=== PATIENT | female | born 1990 | race Caucasian/White ===

== ENCOUNTER 2019-03-13 21:12 | Emergency (ER) | payer BC ==
[~2019-03-13] VITALS: Ht 162.6 cm; Wt 92.0 kg
--- NOTE | 2019-03-13 21:42 | PHYS DOC ---
Adult General Chief Complaint Chief Complaint: ". I hurt bad. here.. on Lt. .. This pain started at dinner.. Maybe I am having a kidney stone... My dad has them. .. I ve never had one..." HPI HPI Patient is a 28 year old female who presents with above hx and complaints extremely severe left flank abdomen pain which radiates to her left lower groin. Patient denies any trauma. Patient denies any travel specific ill contacts. No history of fever or chills. Patient states symptoms started at dinner and became more severe. Patient describes pain as stabbing. At peak times is rated 10 out of 10. Patient has some feeling as if she has to urinate. Patient denies any dysuria however. Patient denies any bad food. Patient denies any history of colitis with her or family members. There is family history of renal stones with father. Patient normally follows with Dr. Santos Review of Systems Review of Systems Constitutional: Denies fever or chills [] Eyes: Denies change in visual acuity, redness, or eye pain [] HENT: Denies nasal congestion or sore throat [] Respiratory: Denies cough or shortness of breath [] Cardiovascular: No additional information not addressed in HPI [] GI: Complaints of abdominal pain, nausea, and left flank pain. Patient denies Vomiting, bloody stools or diarrhea [] : Denies dysuria or hematuria [] Musculoskeletal: Complains of left flank back pain Integument: Denies rash or skin lesions [] Neurologic: Denies headache, focal weakness or sensory changes [] Endocrine: Denies polyuria or polydipsia [] All other systems were reviewed and found to be within normal limits, except as documented in this note. Family History Family History Father has kidney stones Current Medications Current Medications See nursing for home meds Allergies Allergies No known drug allergies Physical Exam Physical Exam Constitutional: Well developed, well nourished,in acute distress, non-toxic appearance. [] HENT: Normocephalic, atraumatic, bilateral external ears normal, oropharynx moist, no oral exudates, nose normal. [] Eyes: PERRLA, EOMI, conjunctiva normal, no discharge. [] Neck: Normal range of motion, no tenderness, supple, no stridor. [] Cardiovascular:Heart rate regular rhythm, no murmur [] Lungs & Thorax: Bilateral breath sounds clear to auscultation [] Abdomen: Bowel sounds decreased, soft, left flank tenderness, no masses, no pulsatile masses. [] No true rebound pain Skin: Warm, dry, no erythema, no rash. [] Back: No tenderness, no CVA tenderness. [] Extremities: No tenderness, no cyanosis, no clubbing, ROM intact, no edema. No psoas sign Neurologic: Alert and oriented X 3, normal motor function, normal sensory function, no focal deficits noted. [] Psychologic: Affect anxious, judgement normal, mood normal. [] EKG EKG [] Radiology/Procedures Radiology/Procedures IMAGING REPORT Signed PATIENT: MICHAEL GALARZA ACCOUNT: [id number] : 1990 LOCATION: ER AGE: 28 SEX: F EXAM STATUS: PRE ER ORD. PHYSICIAN: JUANITO WARREN MD REASON: ABD PAIN, DIABETIC - LOW BLOOD SUGAR. PROCEDURE: CT ABDOMEN PELVIS WO CONTRAST Abdominal and Pelvis CT, Without Contrast: History: Abdominal pain Comparison: None. Procedure: Axial images are obtained of the abdomen and pelvis, without IV or oral contrast. Oral Contrast: No Findings: Evaluation of solid organs is limited without contrast. Liver: Normal. Spleen: Normal. Pancreas: Normal. Adrenal Glands: Normal. Kidneys: There is moderate left hydronephrosis and left hydroureter due to a 4.5 mm stone in the distal left ureter just above the UVJ. The appendix is not well seen. The gallbladder appears normal. There is no free air or free fluid. There is no lymphadenopathy. The urinary bladder appears normal. There is no pericolonic inflammation identified. Impression: Moderate left hydronephrosis and left hydroureter secondary to a 4.5 mm stone in the distal left ureter. End impression PQRS Compliance Statement: One or more of the following individualized dose reduction techniques were utilized for this examination: 1. Automated exposure control 2. Adjustment of the mA and/or kV according to patient size 3. Use of iterative reconstruction technique Electronically signed by: Christie Luo III, MD (03/13/2019 11:32 PM) [id number] DICTATED AND SIGNED BY: CHRISTIE LUO III, MD DATE: 02/04/28 2331 CC: JUANITO WARREN MD; MINDY SANTOS ~ [address] [address] IMAGING REPORT Signed PATIENT: MICHAEL GALARZA ACCOUNT: [id number] : 1990 LOCATION: ER AGE: 28 SEX: F EXAM STATUS: PRE ER ORD. PHYSICIAN: JUANITO WARREN MD REASON: ABDOMINAL PAIN PROCEDURE: ACUTE ABDOMEN SERIES EXAM: Frontal view of the chest, AP views of the abdomen in upright and supine positions. CLINICAL INDICATION: Abdominal pain COMPARISON: None. FINDINGS and IMPRESSION: The heart is not enlarged. Mediastinal and hilar contours are normal. No focal parenchymal airspace opacity. No pleural effusion or pneumothorax. No abnormal small or large bowel dilatation. Relative paucity of small bowel gas. Moderate right-sided colonic stool content. No abnormal soft tissue mass effect. No suspicious calcifications are seen. No free intraperitoneal gas. Electronically signed by: Fermin Byers MD (03/13/2019 11:37 PM) [id number] DICTATED AND SIGNED BY: FERMIN BYERS MD DATE: 03/13/192336 CC: JUANITO WARREN MD; MINDY SANTOS ~ [][address] [address] IMAGING REPORT Signed PATIENT: MICHAEL GALARZA ACCOUNT: [id number] : 1990 LOCATION: ER AGE: 28 SEX: F EXAM STATUS: PRE ER ORD. PHYSICIAN: JUANITO WARREN MD REASON: ABD PAIN, DIABETIC - LOW BLOOD SUGAR. PROCEDURE: CT ABDOMEN PELVIS WO CONTRAST Abdominal and Pelvis CT, Without Contrast: History: Abdominal pain Comparison: None. Procedure: Axial images are obtained of the abdomen and pelvis, without IV or oral contrast. Oral Contrast: No Findings: Evaluation of solid organs is limited without contrast. Liver: Normal. Spleen: Normal. Pancreas: Normal. Adrenal Glands: Normal. Kidneys: There is moderate left hydronephrosis and left hydroureter due to a 4.5 mm stone in the distal left ureter just above the UVJ. The appendix is not well seen. The gallbladder appears normal. There is no free air or free fluid. There is no lymphadenopathy. The urinary bladder appears normal. There is no pericolonic inflammation identified. Impression: Moderate left hydronephrosis and left hydroureter secondary to a 4.5 mm stone in the distal left ureter. End impression PQRS Compliance Statement: One or more of the following individualized dose reduction techniques were utilized for this examination: 1. Automated exposure control 2. Adjustment of the mA and/or kV according to patient size 3. Use of iterative reconstruction technique Electronically signed by: Christie Luo III, MD (03/13/2019 11:32 PM) [id number] DICTATED AND SIGNED BY: CHRISTIE LUO III, MD DATE: 03/13/19 459 CC: JUANITO WARREN MD; MINDY SANTOS ~ Course & Med Decision Making Course & Med Decision Making Pertinent Labs and Imaging studies reviewed. (See chart for details) to save stone if passed. Patient to push fluids. Patient take Tylenol and ibuprofen for pain. Patient take Zofran 8 mg up 4 times a day for active vomiting. Patient take Flomax daily until stone is passed. Patient follow-up urology. For severe pain may take Vicoprofen. If pain is not mandible will have to patient for admission. Recommend patient present at Hospital and has urology. Patient return if any concerns. Impression: 1. Abdomen Pain 2. Renal colic 3. Lt. 4.5 mm distal ureter stone with hydronephrossi [] Dragon Disclaimer Dragon Disclaimer This electronic medical record was generated, in whole or in part, using a voice recognition dictation system. Departure Departure: Disposition: 01 HOME/RESIDENCE PRIOR TO ADM Condition: STABLE Referrals: MINDY SANTOS (PCP) Scripts Tamsulosin Hcl (FLOMAX) 0.4 Mg Cap.er.24h 0.4 MG PO HS for renal colic for 30 Days, #30 CAP.SR Prov: JUANITO WARREN MD 03/14/19 Hydrocodone/Ibuprofen (HYDROCODONE-IBUPROFEN 7.5-200 ) 1 Each Tablet 1 TAB PO PRN Q6HRS PRN for PAIN, #30 TAB 0 Refills Prov: JUANITO WARREN MD 03/14/19 Ondansetron Hcl (ZOFRAN) 8 Mg Tablet 8 MG PO QIDPRN PRN for active nausea and vomiting, #30 BOTTLE Prov: JUANITO WARREN MD 03/14/19 Rj Disclaimer This chart was dictated in whole or in part using Voice Recognition software in a busy, high-work load, and often noisy Emergency Department environment. It may contain unintended and wholly unrecognized errors or omissions. Dragon Disclaimer This chart was dictated in whole or in part using Voice Recognition software in a busy, high-work load, and often noisy Emergency Department environment. It may contain unintended and wholly unrecognized errors or omissions. JUANITO WARREN MD Mar 13, 2019 21:42
[2019-03-13 22:14] LABS: BARBITURATES NEG (NEG); BENZODIAZEPINES NEG (NEG); CANNABINOIDS NEG (NEG); COCAINE NEG (NEG); METHADONE NEG (NEG); OPIATES NEG (NEG); PHENCYCLIDINE NEG (NEG)
[2019-03-13 22:16] LABS: BACTERIA,URINE FEW /HPF (0-FEW); BILIRUBIN,URINE NEG (NEG); CLARITY,URINE HAZY; COLOR,URINE YELLOW; GLUCOSE,URINE NEG (NEG); NITRITE,URINE NEG (NEG); RBC,URINE 20-40 /HPF (0-2); SQUAMOUS EPITHELIAL CELL,UR FEW /LPF; UROBILINOGEN,URINE 0.2 mg/dL (0.2 mg/dL); YEAST,URINE PRESENT /HPF
[2019-03-13 22:17] LABS: AMPHETAMINE/METHAMPHETAMINE NEG (NEG)
[2019-03-13 22:42] LABS: INFLUENZA A PATIENT NEGATIVE (NEGATIVE); INFLUENZA B PATIENT NEGATIVE (NEGATIVE)
[2019-03-13 22:48] LABS: BASO % 1 % (0-3); EOS # 0.1 x10^3/uL (0.0-0.7); EOS % 1 % (0-3); HEMATOCRIT 37.3 % (36.0-47.0); HEMOGLOBIN 11.8 g/dL (12.0-15.5); LYMPH # 3.4 x10^3/uL (1.0-4.8); LYMPH % 37 % (24-48); MEAN CORPUSCULAR HEMOGLOBIN 26 pg (25-35); MEAN CORPUSCULAR HGB CONC 32 g/dL (31-37); MEAN CORPUSCULAR VOLUME 82 fL (79-100); MONO # 0.7 x10^3/uL (0.0-1.1); MONO % 7 % (0-9); NEUT % 54 % (31-73); PLATELET COUNT 295 x10^3/uL (140-400); RED BLOOD COUNT 4.54 x10^6/uL (3.50-5.40); RED CELL DISTRIBUTION WIDTH 15.2 % (11.5-14.5); WHITE BLOOD COUNT 9.2 x10^3/uL (4.0-11.0)
[2019-03-13 22:54] LABS: CALCIUM 9.3 mg/dL (8.5-10.1); CREATININE 0.9 mg/dL (0.6-1.0); GFR 74.6
[2019-03-13] MEDS ORDERED: KETOROLAC 30 MG/ML VIAL. IVP ONE (23:00)
--- NOTE | 2019-03-13 23:35 | RAD ---
Abdominal and Pelvis CT, Without Contrast: History: Abdominal pain Comparison: None. Procedure: Axial images are obtained of the abdomen and pelvis, without IV or oral contrast. Oral Contrast: No Findings: Evaluation of solid organs is limited without contrast. Liver: Normal. Spleen: Normal. Pancreas: Normal. Adrenal Glands: Normal. Kidneys: There is moderate left hydronephrosis and left hydroureter due to a 4.5 mm stone in the distal left ureter just above the UVJ. The appendix is not well seen. The gallbladder appears normal. There is no free air or free fluid. There is no lymphadenopathy. The urinary bladder appears normal. There is no pericolonic inflammation identified. Impression: Moderate left hydronephrosis and left hydroureter secondary to a 4.5 mm stone in the distal left ureter. End impression PQRS Compliance Statement: One or more of the following individualized dose reduction techniques were utilized for this examination: 1. Automated exposure control 2. Adjustment of the mA and/or kV according to patient size 3. Use of iterative reconstruction technique Electronically signed by: Epi Enriquez III, MD (03/13/2019 11:32 PM) [id number]
--- NOTE | 2019-03-13 23:40 | RAD ---
EXAM: Frontal view of the chest, AP views of the abdomen in upright and supine positions. CLINICAL INDICATION: Abdominal pain COMPARISON: None. FINDINGS and IMPRESSION: The heart is not enlarged. Mediastinal and hilar contours are normal. No focal parenchymal airspace opacity. No pleural effusion or pneumothorax. No abnormal small or large bowel dilatation. Relative paucity of small bowel gas. Moderate right-sided colonic stool content. No abnormal soft tissue mass effect. No suspicious calcifications are seen. No free intraperitoneal gas. Electronically signed by: Fermin Vela MD (03/13/2019 11:37 PM) [id number]
[2019-03-13 23:41] VITALS: BP 184/87
[2019-03-14] MEDS ORDERED: HYDR-1179 PO (00:20)
[2019-03-14] MEDS ORDERED: ONDA8TAB9 PO (00:20)
[2019-03-14] MEDS ORDERED: TAMS0.4C97 PO (00:20)
[2019-03-14] MEDS ORDERED: TAMSULOSIN 0.4 MG CAP.ER.24H. PO ONE (00:30)
[2019-03-14] MEDS ORDERED: IV RINGERS SOLUTION,LACTATED 1,000 ML IV ONE (00:30)
[2019-03-14] MEDS ORDERED: ONDANSETRON PF 4 MG/2 ML VIAL. IVP ONE (00:30)
[2019-03-14] MEDS ORDERED: MORPHINE SULFATE 10 MG/ML SYRINGE. SQ ONE (00:30)
== END 2019-03-14 02:40 | disposition home or self-care (01) ==
LOC: ER 21:12
DX: N13.30 Unspecified hydronephrosis (principal); N20.2 Calculus of kidney with calculus of ureter
CPT/HCPCS: 36415; 74022; 74176; 80048; 80307; 81001; 81025; 82550; 83690; 85025; 87804; 96372; 96374; 96375; 99285; J1885; J2270; J2405; J7120